=== PATIENT | female | born 1950 | race Caucasian/White ===

== ENCOUNTER 2016-06-09 06:39 | Inpatient (IN) | payer OTHER, MEDICAID ==
[2016-06-09] MEDS ORDERED: LR 1,000 ML IV ONE (06:56)
[2016-06-09] MEDS ORDERED: LIDOCAINE 1% 5 ML SDV ID PRN (06:56)
[2016-06-09] MEDS ORDERED: ceFAZolin 2 GM/DEXTROSE 100 ML IV ONE (07:30)
[2016-06-09] MEDS ORDERED: LIDO/BUPIVA/morphINE 15ML SYR IU ONE (07:30)
[2016-06-09] MEDS ORDERED: EPINEPHrine 30 MG/30 ML MDV ONE (07:48)
[2016-06-09] MEDS ORDERED: SKIN ADHESIVE (DERMABOND) 1 EACH TP ONE (07:48)
[2016-06-09] MEDS ORDERED: LIDOCAINE/BUP/DURAMORPH 15 ML SYR IF ONE (07:49)
[2016-06-09] MEDS ORDERED: BUPIVACAINE 0.5% IF ONE (08:00)
[2016-06-09] MEDS ORDERED: LIDOCAINE 1% IF ONE (08:00)
[2016-06-09] MEDS ORDERED: BUPIVACAINE/EPI 0.25% 30 ML SDV ONE (08:15)
[2016-06-09] MEDS ORDERED: fentaNYL 100 MCG/2 ML INJ ONE ×2 (08:17→10:49)
[2016-06-09] MEDS ORDERED: PROPOFOL 200 MG/20 ML VIAL ONE (08:18)
[2016-06-09] MEDS ORDERED: LABETALOL HCL 5 MG/ML 20 ML MDV ONE (08:42)
[2016-06-09] MEDS ORDERED: LIDOCAINE 2% 5 ML SDV ONE (08:42)
[2016-06-09] MEDS ORDERED: ROCURONIUM 50 MG/5 ML VIAL ONE (08:42)
[2016-06-09] MEDS ORDERED: ONDANSETRON 4 MG/2 ML VIAL ONE ×2 (09:05→12:20)
[2016-06-09] MEDS ORDERED: PHENYLEPHRINE HCL 100 MCG/ML SYR ONE ×2 (09:05→09:49)
[2016-06-09] MEDS ORDERED: KETOROLAC 30 MG/1 ML SDV ONE (11:03)
[2016-06-09] MEDS ORDERED: HYDROmorphONE/DILAUDID 1 MG/ML SYR ONE (11:22)
[2016-06-09] MEDS ORDERED: CEFAZOLIN 1 GM/DEXTROSE/50 ML BAG IV ONE (11:29)
--- NOTE | 2016-06-09 12:27 | GOP ---
[f rep st] OPERATIVE REPORT DATE OF OPERATION: 06/09/2016 SURGEON: Bharath Antunez MD RELASTER: (medical assistant per diem) OLAYINKA Barney. It should be noted no qualified resident avail able. medical assistant per diem was necessary to assist with the procedure to assist with the repair of the r otator cuff and the biceps tenodesis. ANESTHESIA: General with interscalene block. ANESTHESIOLOGIST: Sunil Avila MD. PREOPERATIVE DIAGNOSIS: Right shoulder rotator cuff tear, biceps tendinitis, impingement, acromiocl avicular joint inflammation. POSTOPERATIVE DIAGNOSIS: Right shoulder rotator cuff tear, biceps tendinitis, impingement, acromioc lavicular joint inflammation. PROCEDURE PERFORMED: 1. Arthroscopic repair of the rotator cuff, CPT code 67079. 2. Arthroscopic subacromial decompression, CPT code 48312. 3. Arthroscopic distal clavicle excision, CPT code 33813. 4. Mini open subpectoral biceps tenodesis, CPT code 00464. FINDINGS: 1. Intact articular cartilage of humeral head and glenoid. 2. Intact anterior, inferior, and posterior labrum. 3. Type 2 SLAP lesion with a frayed biceps tendon and inflamed biceps tendon. 4. A high-grade bursal-sided tear of the rotator cuff. 5. Downsloping anterior acromion with subacromial bursitis. 6. A tight degenerative acromioclavicular joint. INDICATIONS: The patient is a 65-year-old with persistent right shoulder pain. Despite nonoperativ e management, has had persistent pain. The patient had imaging that demonstrates some bursal-sided tearing of the rotator cuff. She had options discussed and desired to go ahead with the evaluation of the rotator cuff, possible repair, subacromial decompression, distal clavicle excision, and a bic eps tenodesis. She understood the potential risks and benefits, including, but not limited to, blee ding, infection, persistent pain, stiffness, anesthetic risks. DESCRIPTION OF PROCEDURE: The patient was taken to the operating room. After undergoing successful general anesthesia and interscalene block, the patient was placed in the beach chair position. The right upper extremity prepped and draped in the usual sterile manner. Anatomic landmarks were iden tified. The anterior and posterior portal sites were injected with 0.25% Marcaine and 1% lidocaine. Subacromial space injected with the same. Posterior portal was made. The arthroscope was placed in the joint. With the arthroscope in the joint, the anterior portal was made. The probe was place d, and the findings are as described above. The findings of the biceps tendon and the SLAP lesion w ere identified. Subsequently, the arthroscope was taken out. Anterior axillary incision was made. The pectoralis was reflected superiorly. A Wendy retractor was placed. Bicipital groove was iden tified. This was curetted. A 2.9 mm JuggerKnot suture anchor was placed, and this had two #2 MaxBr aid sutures. These were placed through and around the biceps tendon. Biceps was then tenodesed int o the groove. The biceps was cut just above this. Following this, the dissection of the biceps was taken out. The superior labrum was debrided back to a stable base. The arthroscope was placed int o the subacromial space. Bursectomy was performed, and then a subacromial decompression, beginning anterolaterally and extended from anterolateral to anteromedial with the acromionizer bur. Followin g this, the distal clavicle was excised using the acromionizer bur as well. The superior and machine veneer repairer ior ligaments remained intact. Next, the tear of the rotator cuff was identified. The rotator cuff area was debrided. The greater tuberosity was decorticated, and then 2 of the 2.9 mm JuggerKnot bautista ture anchors were then placed. Sutures from these anchors were passed through the rotator cuff, the bird beak over the LaunchRock suture passing device. The rotator cuff was then tied down using arthr oscopic knot tying technique. The area was subsequently irrigated after repair of tissue. Tissue w as fair to good quality. The bone was of fair quality. The repair was good. The area was irrigate d. Portal sites closed using 3-0 nylon suture. Anterior axillary incision closed using 3-0 Monocry l followed by 3-0 Prolene suture. Portal sites closed using 3-0 nylon suture. The subacromial spac e injected with 0.25% Marcaine, 1% lidocaine, and 5 mg of Duramorph. The patient had a sterile dres sing. The patient was placed in a sling with a small abduction pillow. The patient was awakened, t aken to the recovery room in stable condition. Sponge, instrument, and needle counts were correct. PATIENT POSITION: Beach chair. PLAN: The patient will undergo physical therapy with emphasis on passive range of motion only for t he next 6 weeks. Will follow the ZEV rotator cuff protocol. /[id number]/MODL
[2016-06-09] MEDS ORDERED: OXYCODONE/APAP 5/325 TAB ONE (13:57)
[2016-06-09] MEDS ORDERED: PROMETHAZINE HCL 25 MG/ML INJ ONE (14:11)
[2016-06-09] MEDS ORDERED: ONDANSETRON 4 MG/2 ML VIAL IVP PRN (14:40)
[2016-06-09] MEDS ORDERED: NS 1,000 ML IV SCH (14:45)
[2016-06-09] MEDS ORDERED: HYDROmorphONE/DILAUDID 2 MG TAB PO PRN (14:46)
[2016-06-09] MEDS ORDERED: HYDROmorphONE/DILAUDID 1 MG/ML SYR IVP PRN (14:46)
[2016-06-09] MEDS: INSULIN REGULAR HUMAN 100 UNIT/ML SC SCH (18:16)
[2016-06-09] MEDS: DOCUSATE SODIUM 100 MG CAP PO SCH (19:49)
[2016-06-09] MEDS: ACETAMINOPHEN 325 MG TAB PO PRN (19:49)
[2016-06-09] MEDS ORDERED: HYDROmorphONE/DILAUDID 1 MG/ML SYR IVP ONE (23:00)
[2016-06-10] MEDS: HYDROmorphONE/DILAUDID 2 MG TAB PO PRN ×2 (00:01→04:10)
[2016-06-10] MEDS: NAPROXEN SODIUM 220 MG TAB PO PRN ×2 (00:08→15:58)
[2016-06-10] MEDS ORDERED: KETOROLAC 30 MG/1 ML SDV IVP ONE (01:00)
[2016-06-10] MEDS: ACETAMINOPHEN 325 MG TAB PO PRN ×3 (01:15→21:38)
[2016-06-10] MEDS: hydrOXYzine HCL 25 MG TAB PO PRN ×3 (06:21→18:22)
[2016-06-10] MEDS: oxyCODONE IR 5 MG TAB PO PRN ×3 (06:55→18:45)
[2016-06-10] MEDS: DOCUSATE SODIUM 100 MG CAP PO SCH ×2 (08:31→19:46)
[2016-06-10] MEDS: INSULIN REGULAR HUMAN 100 UNIT/ML SC SCH ×3 (08:32→18:31)
[2016-06-10] MEDS: FAMOTIDINE 20 MG TAB PO SCH (08:32)
[2016-06-10] MEDS ORDERED: TOPIRAMATE 25 MG TAB PO SCH ×2 (09:00→21:00)
[2016-06-10] MEDS ORDERED: ASPIRIN 81 MG CHEWABLE TAB PO SCH (09:00)
[2016-06-10] MEDS ORDERED: PANTOPRAZOLE SODIUM 40 MG TAB PO ONE (10:27)
[2016-06-10 16:50] LABS: CREATINE KINASE-MB FRACTION 1.56 ng/mL (0-3.19); TROPONIN I < 0.012 ng/mL (0-0.034)
--- NOTE | 2016-06-10 17:00 | SOAPPROG ---
SOAP Progress Note Assessment/Plan: Assessment: Post-op Pain S/P Right Shoulder RCR, SAD, DCE, Biceps tenodesis Plan: Due to continued pain and difficulty with pain control, we will plan to keep Kamilah one more night in the hospital. I ordered Valium 5mg PO Q6h PRN spasms/anxiety. She appears to be anxious and overwhelmed in addition to her pain. She will continue to use the ice machine and sling on her RUE. I have consulted with Dr. Bharath Antunez and Dr. Radha Lomax who are in agreement of the plan and we will plan to discharge her tomorrow. Subjective: Kamilah is doing better from a pain management standpoint, but feels like she continues to have pain that is hard to control at times. She took Dilaudid and is unsure if that did much for her pain. She states the doctor temporary receptionist last night gave her toradol and that seemed to help a little. She continues to wear the sling and states if she doesn't move that her pain is well-controlled. If she gets up to use the restroom or has to move around in the bed, her pain increases. Rates her pain 6/10 at this time. She also reports she had an episode of chest pain an hour or so ago and felt like it moved from the front to the back and then had pain in the back of her right shoulder. She states they did an EKG on her and everything looked good. She is feeling better now, but continues to have pain in her right shoulder. She denies numbness/tingling. She states she feels she needs to spend one more night in the hospital to get the pain under control and then she will feel comfortable going home. She reports she does not have much help at home for her daughter has a disability and can't provide much assistance. Objective: Vital Signs Temp Pulse Resp BP Pulse Ox 36.6 C 99 16 173/90 H 97 06/10/16 16:11 06/10/16 16:11 06/10/16 12:06 06/10/16 16:11 06/10/16 12:06 06/09/16 06/10/16 06/11/16 05:59 05:59 05:59 Intake Total 2300 Output Total 650 Balance 1650 Kamilah is AAOx3. She appears to be in no acute distress. Her Right shoulder is pink, warm and NVI. Assistant Account Manager strength 5/5. Sling appears to be fitted properly. - Time Spent With Patient Time Spent With Patient: 20 minutes - Pending Discharge Pending Discharge Within 24 Hours: Yes Pending Discharge Date: 06/11/16 Pending Discharge Time: 14:00 ICD10 Worksheet Patient Problems: Problems Problem Status Onset S/P rotator cuff repair Acute - ICD10 Problem Qualifiers (1) S/P rotator cuff repair
[2016-06-10] MEDS: DIAZEPAM 5 MG TAB PO PRN (19:46)
[2016-06-10] MEDS ORDERED: CETIRIZINE 10 MG TAB PO SCH (21:00)
[2016-06-10] MEDS ORDERED: NON-FORMULARY NEW DRUG (Ranitidine Hcl [Zantac] 150 MG) PO SCH (21:00)
[2016-06-11] MEDS: DIAZEPAM 5 MG TAB PO PRN ×2 (00:40→13:48)
[2016-06-11] MEDS: oxyCODONE IR 5 MG TAB PO PRN ×4 (00:42→15:29)
[2016-06-11] MEDS: FAMOTIDINE 20 MG TAB PO SCH (07:55)
[2016-06-11] MEDS: DOCUSATE SODIUM 100 MG CAP PO SCH (07:55)
[2016-06-11] MEDS: INSULIN REGULAR HUMAN 100 UNIT/ML SC SCH ×2 (08:03→12:28)
[2016-06-11] MEDS ORDERED: NON-FORMULARY NEW DRUG (Esomeprazole Mag Trihydrate [Nexium] 40 MG) PO SCH (09:00)
[2016-06-11] MEDS ORDERED: METFORMIN HCL 1500 MG PO SCH (09:00)
[2016-06-11] MEDS ORDERED: ASPIRIN EC 81 MG TAB PO SCH (09:00)
[2016-06-11] MEDS ORDERED: traZODone 50 MG TAB PO SCH (09:00)
[2016-06-11] MEDS ORDERED: CHOLECALCIFEROL VIT D3 1,000 UNITS TAB PO SCH (09:00)
[2016-06-11] MEDS ORDERED: NON-FORMULARY NEW DRUG (Cholecalciferol Vit D3 [Vitamin D3 (*)] 1,000 UNITS) PO SCH (09:00)
[2016-06-11] MEDS ORDERED: metFORMIN HCL 500 MG TAB PO SCH (09:00)
[2016-06-11] MEDS ORDERED: PANTOPRAZOLE SODIUM 40 MG TAB PO SCH (09:00)
[2016-06-11] MEDS ORDERED: TOPIRAMATE 25 MG PO SCH (09:00)
[2016-06-11] MEDS ORDERED: TOPIRAMATE 25 MG TAB PO SCH (09:00)
--- NOTE | 2016-06-11 09:24 | CPEKG ---
Heart Rate: 83 RR Interval: 723 P-R Interval: 168 QRSD Interval: 82 QT Interval: 364 QTC Interval: 428 P [place]: -1 QRS [place]: 65 T Wave [place]: 14 EKG Severity - NORMAL ECG - EKG Impression: SINUS RHYTHM Electronically Signed By: Alexis Anderson 10-Jun-2016 23:46:46
[2016-06-11] MEDS: NAPROXEN SODIUM 220 MG TAB PO PRN (11:32)
[2016-06-11 12:00] VITALS: BP 153/93; PULSE 127; RESP 16; TEMP 98.3; O2SAT 90
== END 2016-06-11 16:32 | disposition home or self-care (01) | DRG 941 ==
LOC: FSGY 06:39 → F3N 14:37 → OBSVTOIN 06-10 16:56
PROVIDERS: ADMIT Orthopaedic Surgery Sports Medicine; ATTEND Orthopaedic Surgery Sports Medicine
PROC: 0LQ14ZZ Repair Right Shoulder Tendon, Percutaneous Endoscopic Approach (ICD-10-PCS; principal; 2016-06-10)
PROC: 0PB94ZZ Excision of Right Clavicle, Percutaneous Endoscopic Approach (ICD-10-PCS; principal; 2016-06-10)
PROC: 0LM10ZZ Reattachment of Right Shoulder Tendon, Open Approach (ICD-10-PCS; principal; 2016-06-10)
PROC: 0MB14ZZ Excision of Right Shoulder Bursa and Ligament, Percutaneous Endoscopic Approach (ICD-10-PCS; principal; 2016-06-10)
DX: G89.18 Other acute postprocedural pain (principal); M75.21 Bicipital tendinitis, right shoulder; S46.011A Strain of muscle(s) and tendon(s) of the rotator cuff of right shoulder, initial encounter; M19.011 Primary osteoarthritis, right shoulder; W19.XXXA Unspecified fall, initial encounter; E11.9 Type 2 diabetes mellitus without complications; E78.5 Hyperlipidemia, unspecified; Z87.891 Personal history of nicotine dependence
CPT/HCPCS: C1713; J0690; J1170; J1815; J1885; J2274; J2370; J2405; J2550; J2704; J3010; J3490